=== PATIENT | male | born 1945 | race Caucasian/White ===

== ENCOUNTER → 2016-05-04 | Outpatient (CLI) | payer MEDICARE ==
[~2016-05-04] MED LIST: ALLO300T2 PO; ALLOPURINOL; Aspirin PO; Atorvastatin Calcium PO; CLPD75T PO; HCTZ; HYDR50TA3 PO; LISI5TAB14 PO; METO25TA2 PO; [UNRECOGNIZED DRUG - OTHER]
--- OUTSIDE RECORDS SUMMARY | 2016-05-04 12:19 | XMS REPORT | Continuity of Care Document ---
Author Author [facility] Organization [facility] Address Unknown Phone Unavailable Care Team Providers Care Camp Boss Name Role Phone DANDY SELLERS MD PCP Insurance Providers Payer Name Policy Number Subscriber Name Relationship Wps Medicare [id number] Freddy Jewell 18 Self / Same As Patient Blue [employer] Supp [id number] Freddy Jewell 18 Self / Same As Patient Advance Directives Directive Response Recorded Date/Time Advance Directives No 05/31/14 8:15pm Health Care Power of Explosive Operator No 05/31/14 8:15pm Organ Donor Yes 05/31/14 8:15pm Resuscitation Status Full Code 05/31/14 8:15pm Chief Complaint and Reason for Visit Chief Complaint ACUTE ST ELEVATION PA Reason for Visit CAD (coronary artery disease) Hyperlipidemia Problems Medical Problems Problem Onset Date Status CAD (coronary artery disease) 06/02/2014 Active Hyperlipidemia 06/02/2014 Active Medications Medication Dose Route Sig Days/Qty Instructions Order Date Discontinued Date Status [Hctz] DAILY 02/17/11 06/02/14 Discontinued [Allopurinol] DAILY 02/17/11 06/02/14 Discontinued [Uricet] DAILY 02/17/11 06/02/14 Discontinued [Aspirin] 81 Mg PO DAILY 30 Qty 06/02/14 Active Clopidogrel Bisulfate 75 Mg PO DAILY 30 Qty 06/02/14 Active Lisinopril (Lisinopril 5mg) 2.5 Mg PO DAILY 30 Qty 06/02/14 Active Metoprolol Tartrate 12.5 Mg PO TWICE A DAY 30 Qty 06/02/14 Active [Atorvastatin Calcium] 20 Mg PO BEDTIME 30 Qty 06/02/14 Active Allopurinol 300 Mg PO DAILY 06/02/14 Active Hydrochlorothiazide 50 Mg PO DAILY 06/02/14 06/02/14 Discontinued Social History Social History Problem Response Recorded Date/Time Alcohol Use Denies Use 05/31/2014 8:15pm Recreational Drug Use No 05/31/2014 8:15pm Recent Foreign Travel No 05/31/2014 8:15pm Recent Infectious Disease Exposure No 05/31/2014 8:15pm Hospitalization with Isolation Denies 06/02/2014 12:14pm Sexually Transmitted Disease No 05/31/2014 8:15pm HIV/AIDS No 05/31/2014 8:15pm Smoking Status Never a Smoker 05/31/2014 8:15pm Do you dip or chew tobacco? No 05/31/2014 8:15pm Query Response Start Date Stop Date Smoking Status Never a Smoker Hospital Discharge Instructions Patient Instructions Physician Instructions New, Converted or Re-Newed RX: RX on Chart Patient Instructions: Please schedule a follow up appointment to see Dr. Kim in 1-2 weeks Plan of Care Discharge Date 06/02/14 11:37am Disposition 30 STILL A PATIENT Instructions/Education Provided CARDIAC CATH DISCHARGE INSTRUC Forms Provided PDI Cardiac Cath Prescriptions See Medications Section Follow-up Orders Lipid Panel CMP Referrals DELMAR KIM MD FACP FACC CCDS (Unspecified) 06/12/14 Address: [address] [place] [address] [address] [place], [place] [id number] Reason(s) for Referral: Thursday, June 12, 2014 at 2:40 PM Call the office if you have questions/concerns. Care Plan and Goals Please remover dressing to right groin and apply a band aide DO NOT DISCHARGE UNTIL SEEN BY DR. KIM Functional Status Query Response Date Recorded Comprehension Ability Understands Concepts June 02, 2014 8:10am Allergies, Adverse Reactions, Alerts Allergen Type Severity Reaction Status Last Updated No Known Drug Allergies Active 02/17/11 Immunizations Name Given Type Date of Pneumonia Vaccine 06/02/14 Historical Date of Influenza Vaccine 01/03/14 Historical Hepatitis A No Historical Hepatitis B No Historical Tetanus Booster (TDap) Unknown Historical pneumococcal polysaccharide PPV23 06/02/14 Administered pneumococcal polysaccharide PPV23 06/02/14 Administered Vital Signs Acute Vital Signs Vital Response Date/Time Temperature (Fahrenheit) 96.9 degrees F (97.6 - 99.5) Temperature (Calculated Celsius) 36.05381 degrees C (36.4 - 37.5) Temperature Source Temporal Pulse Rate (adult) 66 bpm (60 - 90) Respiratory Rate 20 bpm (12 - 24) O2 Sat by Pulse Oximetry 96 % (88 - 100) Blood Pressure 107/69 mm Hg Pain Pain Intensity 0 Height (Feet) 5 feet Height (Inches) 7.00 inches Height (Calculated Centimeters) 170.631692 cm Weight (Pounds) 175 pounds Weight (Calculated Grams) 53708.666 gm Weight (Calculated Kilograms) 79.835578 kilograms Calculated BMI 25.06 Results Laboratory Results Test Name Result Units Flags Reference Collection Date/Time Result Date/ Time Comments White Blood Count 10.0 10^3/uL 4.3-11.0 06/02/2014 5:06/02/2014 5: 44am Red Blood Count 4.40 10^6/uL 4.35-5.85 06/02/2014 5:06/02/2014 5: 44am Hemoglobin 13.0 G/DL L 13.3-17.7 06/02/2014 5:06/02/2014 5:44am Hematocrit 38 % L 40-54 06/02/2014 5:06/02/2014 5:44am Mean Corpuscular Volume 86 FL 80-99 06/02/2014 5:06/02/2014 5: 44am Mean Corpuscular Hemoglobin 30 PG 25-34 06/02/2014 5:06/02/2014 5: 44am Mean Corpuscular Hemoglobin Concent 34 G/DL 32-36 06/02/2014 5: 5:44am Red Cell Distribution Width 13.3 % 10.0-14.5 06/02/2014 5:2014 5:44am Platelet Count 200 10^3/uL 130-400 06/02/2014 5:06/02/2014 5:44am Mean Platelet Volume 9.7 FL 7.4-10.4 06/02/2014 5:06/02/2014 5: 44am Sodium Level 140 MMOL/L 135-145 06/02/2014 5:06/02/2014 5:56am Potassium Level 3.8 MMOL/L 3.6-5.0 06/02/2014 5:06/02/2014 5:56am Chloride Level 107 MMOL/L 98-107 06/02/2014 5:06/02/2014 5:56am Carbon Dioxide Level 23 MMOL/L 21-32 06/02/2014 5:06/02/2014 5: 56am Blood Urea Nitrogen 21 MG/DL H 7-18 06/02/2014 5:06/02/2014 5:56am Creatinine 0.90 MG/DL 0.60-1.30 06/02/2014 5:06/02/2014 5:56am BUN/Creatinine Ratio 23 06/02/2014 5:06/02/2014 5:56am Estimat Glomerular Filtration Rate > 60 06/02/2014 5:2014 5:56am GFR INTERPRETIVE DATA UNITS FOR ESTIMATED GFR (eGFR): mL/min/1.73 M2 REFERENCE RANGE FOR ESTIMATED GFR (eGFR) eGFR NORMAL eGFR >60 MODERATELY DECREASED eGFR 30-59 SEVERLY DECREASED eGFR 15-29 KIDNEY FAILURE <15 (OR DIALYSIS) Glucose Level 98 MG/DL 70-105 06/02/2014 5:06/02/2014 5:56am Glucometer 142 MG/DL H 70-110 06/01/2014 9:45pm 06/01/2014 10:00pm Calcium Level 8.8 MG/DL 8.5-10.1 06/02/2014 5:06/02/2014 5:56am Magnesium Level 1.9 MG/DL 1.8-2.4 06/02/2014 5:06/02/2014 5:56am Total Bilirubin 0.4 MG/DL 0.1-1.0 06/01/2014 4:3506/01/2014 5:09am Alkaline Phosphatase 50 U/L 40-136 06/01/2014 4:3506/01/2014 5:09am Aspartate Amino Transf (AST/SGOT) 114 U/L H 5-34 06/01/2014 4:352014 5:09am Alanine Aminotransferase (ALT/SGPT) 26 U/L 0-55 06/01/2014 4:35am 06/01 5:09am Total Protein 5.6 G/DL L 6.4-8.2 06/01/2014 4:35am 06/01/2014 5:09am Albumin 3.4 G/DL 3.2-4.5 06/01/2014 4:35am 06/01/2014 5:09am Triglycerides Level 162 MG/DL H <150 06/01/2014 4:35am 06/01/2014 5:09am Cholesterol Level 188 MG/DL < 200 06/01/2014 4:35am 06/01/2014 5:09am HDL Cholesterol 35 MG/DL L 40-60 06/01/2014 4:35am 06/01/2014 5:09am LDL Cholesterol Direct 134 MG/DL H 1-129 06/01/2014 4:35am 06/01/2014 5: 09am VLDL Cholesterol 32 MG/DL 5-40 06/01/2014 4:35am 06/01/2014 5:09am Thyroid Stimulating Hormone (TSH) 1.40 UIU/ML 0.35-4.94 06/01/2014 4: 35am 06/01/2014 5:44am Procedures Procedure Status Date Provider(s) Tracing only of electrocardiogram completed 05/31/14 DELMAR KIM MD FACP FAC CCDS Encounters Encounter Location Date/Time Discharged Inpatient Via [facility] 05/31/14 8:00pm Recent Diagnosis CAD (coronary artery disease) Hyperlipidemia
--- NOTE | 2016-05-04 12:35 | Diagnostic Imaging Report ---
EXAMINATION: PA and lateral chest. COMPARISON: 06/24/2008. FINDINGS: There is minimal left basilar atelectasis. The right lung is clear. The heart size is normal. No effusion or pneumothorax. Cardiac stent projecting over the left side of the heart seen. Mediastinum and oscar appear unremarkable. IMPRESSION: Minimal left basilar atelectasis. Dictated by: Dictated on workstation # [id number]
== END ==
LOC: RAD 12:14
PROVIDERS: ATTEND Nurse Practitioner Family
DX: J18.9 Pneumonia, unspecified organism (principal)
CPT/HCPCS: 71020

== ENCOUNTER → 2016-05-29 | Outpatient (CLI) | payer MEDICARE ==
[2016-05-29 09:01] LABS: ALANINE AMINOTRANSFERASE 26 U/L (0-55); ALBUMIN 3.9 G/DL (3.2-4.5); ANION GAP 7 MMOL/L (5-14); ASPARTATE AMINO TRANSFERASE 24 U/L (5-34); BILIRUBIN,TOTAL 0.9 MG/DL (0.1-1.0); BLOOD UREA NITROGEN 19 MG/DL (7-18); BUN/CREATININE RATIO 19; CALCIUM 8.8 MG/DL (8.5-10.1); CARBON DIOXIDE 27 MMOL/L (21-32); CHLORIDE 107 MMOL/L (98-107); CHOLESTEROL 154 MG/DL (< 200); CREATININE SERUM 1.02 MG/DL (0.60-1.30); DIRECT LDL 93 MG/DL (1-129); GFR ESTIMATED > 60; GLUCOSE 92 MG/DL (70-105); POTASSIUM 4.3 MMOL/L (3.6-5.0); SODIUM 141 MMOL/L (135-145); TOTAL PROTEIN 6.4 G/DL (6.4-8.2); TRIGLYCERIDES 67 MG/DL (<150); VLDL CHOLESTEROL 13 MG/DL (5-40)
== END ==
LOC: LAB 08:24
PROVIDERS: ATTEND Internal Medicine Cardiovascular Disease
DX: I25.10 Atherosclerotic heart disease of native coronary artery without angina pectoris (principal); E78.5 Hyperlipidemia, unspecified; I10 Essential (primary) hypertension
CPT/HCPCS: 36415; 80053; 80061

== ENCOUNTER → 2016-06-13 | Outpatient (CLI) | payer MEDICARE | LOC: RAD 12:09 | PROVIDERS: ATTEND Internal Medicine Cardiovascular Disease | DX: I25.10 Atherosclerotic heart disease of native coronary artery without angina pectoris (principal); I65.23 Occlusion and stenosis of bilateral carotid arteries; E78.4 Other hyperlipidemia; I10 Essential (primary) hypertension; I73.9 Peripheral vascular disease, unspecified | CPT/HCPCS: 93923 ==

== ENCOUNTER → 2016-06-27 | Outpatient (CLI) | payer MEDICARE ==
--- NOTE | 2016-06-28 10:58 | ECHOCARDIOGRAPHY REPORT ---
DATE OF SERVICE: 06/27/2016 ORDERING PHYSICIAN: Dr. Kim. PRIMARY CARE PHYSICIAN: Dr. Prado. CLINICAL DIAGNOSES: Coronary artery disease, hyperlipidemia, hypertension. MEASUREMENTS: 1. Left atrium, 3. 2. Aortic root, 3.5. 3. LV diameter, diastolic, 4.1. 4. IVS thickness, diastolic, 0.8. 5. LVPW thickness, diastolic, 0.8. DESCRIPTION: Two-dimensional echocardiography shows well-preserved global left ventricular systolic function with normal regional wall motion. The aortic, mitral, and tricuspid valve leaflets show good leaflet excursion. There is no significant pericardial effusion. Doppler imaging shows mild aortic, mitral and tricuspid regurgitation. Pulmonary artery systolic pressure is estimated at approximately 30 mmHg. There is no Doppler evidence of significant valvular stenosis. There is no evidence of significant intracardiac shunt on this transthoracic echocardiographic study. The inferior vena cava does not appear to be dilated. CONCLUSIONS: 1. Normal global left ventricular systolic function with ejection fraction of approximately 60%. 2. Mild aortic, mitral and tricuspid regurgitation. 3. No evidence of significant valvular stenosis. 4. Pulmonary artery systolic pressure estimated at approximately 30 mmHg. Job ID: [id number] DocumentID: [id number] Dictated Date: 06/27/2016 17:53:10 County Agricultural Agent Date: 06/28/2016 09:26:39 Dictated By: DELMAR KIM MD, MA, FACP, FACC,
== END ==
LOC: CARD 13:32
PROVIDERS: ATTEND Internal Medicine Cardiovascular Disease
DX: I25.10 Atherosclerotic heart disease of native coronary artery without angina pectoris (principal); E78.5 Hyperlipidemia, unspecified; I10 Essential (primary) hypertension
CPT/HCPCS: 93306; 93351

== ENCOUNTER → 2017-04-16 | Outpatient (CLI) | payer MEDICARE ==
--- NOTE | 2017-04-16 15:42 | Diagnostic Imaging Report ---
INDICATION: Cough and congestion. TIME OF EXAM: 3:26 p.m. COMPARISON: Correlation is made with prior study from 05/04/2016. FINDINGS: The heart size is normal. The pulmonary vascularity is unremarkable. The lungs are clear. No infiltrate, effusion or pneumothorax is detected. Impression: No acute cardiopulmonary process is detected. Dictated by: Dictated on workstation # [id number]
== END ==
LOC: RAD 14:58
PROVIDERS: ATTEND Family Medicine
DX: R05 Cough (principal)
CPT/HCPCS: 71046

== ENCOUNTER → 2017-05-31 | Outpatient (CLI) | payer MEDICARE ==
[2017-05-31 09:32] LABS: BASOPHILS % (AUTO) 1 % (0-10); EOSINOPHILS # (AUTO) 0.2 10^3/uL (0.0-0.3); EOSINOPHILS % (AUTO) 3 % (0-10); HEMATOCRIT 38 % (40-54); HEMOGLOBIN 13.2 G/DL (13.3-17.7); LYMPHOCYTES # (AUTO) 1.4 X 10^3 (1.0-4.0); LYMPHOCYTES % (AUTO) 18 % (12-44); MEAN CORPUSCULAR HEMOGLOBIN 31 PG (25-34); MEAN CORPUSCULAR HGB CONC 35 G/DL (32-36); MEAN CORPUSCULAR VOLUME 89 FL (80-99); MEAN PLATELET VOLUME 9.8 FL (7.4-10.4); MONOCYTES # (AUTO) 0.6 X 10^3 (0.0-1.0); MONOCYTES % (AUTO) 8 % (0-12); NEUTROPHILS # (AUTO) 5.3 X 10^3 (1.8-7.8); NEUTROPHILS % (AUTO) 70 % (42-75); PLATELET COUNT 230 10^3/uL (130-400); RED BLOOD COUNT 4.33 10^6/uL (4.35-5.85); WHITE BLOOD COUNT 7.6 10^3/uL (4.3-11.0)
[2017-05-31 09:54] LABS: ALANINE AMINOTRANSFERASE 16 U/L (0-55); ALKALINE PHOSPHATASE 71 U/L (40-136); BILIRUBIN,TOTAL 0.8 MG/DL (0.1-1.0); BUN/CREATININE RATIO 16; CALCIUM 8.9 MG/DL (8.5-10.1); CARBON DIOXIDE 30 MMOL/L (21-32); CHLORIDE 107 MMOL/L (98-107); CREATININE SERUM 0.94 MG/DL (0.60-1.30); GFR ESTIMATED > 60; GLUCOSE 93 MG/DL (70-105); POTASSIUM 4.2 MMOL/L (3.6-5.0); SODIUM 140 MMOL/L (135-145); TOTAL PROTEIN 6.5 GM/DL (6.4-8.2)
== END ==
LOC: LAB 09:12
PROVIDERS: ATTEND Internal Medicine Cardiovascular Disease
DX: I25.10 Atherosclerotic heart disease of native coronary artery without angina pectoris (principal); R25.2 Cramp and spasm; I65.29 Occlusion and stenosis of unspecified carotid artery; I73.9 Peripheral vascular disease, unspecified; E78.5 Hyperlipidemia, unspecified; I10 Essential (primary) hypertension
CPT/HCPCS: 36415; 80053; 84443; 85025

== ENCOUNTER → 2017-11-15 | Outpatient (CLI) | payer MEDICARE ==
[2017-11-15 09:18] LABS: ALANINE AMINOTRANSFERASE 18 U/L (0-55); ALBUMIN 4.3 GM/DL (3.2-4.5); ALKALINE PHOSPHATASE 66 U/L (40-136); BILIRUBIN,TOTAL 0.9 MG/DL (0.1-1.0); BUN/CREATININE RATIO 22; CALCIUM 9.2 MG/DL (8.5-10.1); CARBON DIOXIDE 24 MMOL/L (21-32); CHLORIDE 105 MMOL/L (98-107); CHOLESTEROL 139 MG/DL (< 200); CREATININE SERUM 1.09 MG/DL (0.60-1.30); GFR ESTIMATED > 60; GLUCOSE 91 MG/DL (70-105); HDL CHOLESTEROL 47 MG/DL (40-60); SODIUM 138 MMOL/L (135-145); TOTAL PROTEIN 6.3 GM/DL (6.4-8.2); TRIGLYCERIDES 52 MG/DL (<150); VLDL CHOLESTEROL 10 MG/DL (5-40)
== END ==
LOC: LAB 08:39
PROVIDERS: ATTEND Nurse Practitioner Family
DX: I25.10 Atherosclerotic heart disease of native coronary artery without angina pectoris (principal); I77.89 Other specified disorders of arteries and arterioles; E78.5 Hyperlipidemia, unspecified; I10 Essential (primary) hypertension
CPT/HCPCS: 36415; 80053; 80061

== ENCOUNTER → 2018-07-30 | Outpatient (CLI) | payer MEDICARE ==
[~2018-07-30] MED LIST changes: +CATHETER FLUSH 10 ML SYR IV PRN
[2018-07-30 14:00] VITALS: BP 113/90
[2018-07-30 14:13] VITALS: BP 146/75
--- NOTE | 2018-07-30 19:01 | STRESS TEST ---
DATE OF SERVICE: 07/30/2018 RESTING AND POST EXERCISE TECHNETIUM-99M TETROFOSMIN SPECT CT IMAGING Baseline images were carried out after injection of 10.94 mCi of technetium-99m Tetrofosmin. This was followed by exercise on a treadmill. Roberto protocol was employed. Heart rate and blood pressure responses to exercise were normal. There was approximately [address] segment depression at peak exercise. The patient attained 106% of maximum predicted heart rate and 11.1 METS of workload. He exercised for a total of 9 minutes and 30 seconds in the Roberto protocol. No significant arrhythmia was seen. After he had indicated that he would not be able to go for more than another minute on the treadmill, 29.1 mCi of technetium-99m Tetrofosmin were injected and the exercise was continued for another minute. The patient tolerated the procedure well. Review of images at rest and following stress does not indicate any significant perfusion defects consistent with significant myocardial ischemia or infarction. Some degree of diaphragmatic attenuation is seen both at rest and following exercise. Gated images show normal global left ventricular systolic function and normal regional wall motion, including the diaphragmatic wall of the left ventricle. Left ventricular ejection fraction is calculated to be 61%. Left ventricular end diastolic volume is 64 mL. TID is absent (0.95). CONCLUSIONS: 1. No evidence of any significant myocardial ischemia or infarction on this study. 2. Normal regional wall motion. 3. Normal global left ventricular systolic function with a calculated ejection fraction of 61%. Job ID: [id number] DocumentID: [id number] Dictated Date: 07/30/2018 17:20:54 Cow Rider Date: 07/30/2018 19:00:38 Dictated By: DELMAR HEARD MD, MA, FACP, FACC,
== END ==
LOC: CARD 11:57
PROVIDERS: ATTEND Internal Medicine Cardiovascular Disease
DX: R07.9 Chest pain, unspecified (principal); I25.10 Atherosclerotic heart disease of native coronary artery without angina pectoris; E78.5 Hyperlipidemia, unspecified; I77.89 Other specified disorders of arteries and arterioles; I10 Essential (primary) hypertension
CPT/HCPCS: 78452; 93017

== ENCOUNTER → 2019-01-29 | Outpatient (CLI) | payer MEDICARE ==
[~2019-01-29] MED LIST changes: -CATHETER FLUSH 10 ML SYR IV PRN
--- NOTE | 2019-01-29 09:43 | Diagnostic Imaging Report ---
EXAMINATION: Supine abdomen at 0905 hours. INDICATION: Nephrolithiasis. FINDINGS: The prior abdomen exam of 12/28/2008 suggested a 2-3 mm calculus within the inferior pole of the left kidney. On this exam there is now a 8.5 mm calcification overlying the inferior pole of the left kidney. I do suspect that this is intrarenal. In addition there is a 7.9 mm calcification low in the pelvis on the left. This finding was not present on the prior exam. This could represent a ureteral stone. The possibility that this is secondary to a phlebolith should also be considered. If there is clinical concern regarding obstruction of the left collecting system, then CT would be recommended for further evaluation. There is no evidence for nephrolithiasis on the right although the right kidney is obscured by bowel gas and fecal material. The bowel gas pattern is nonspecific. There is no evidence for bowel obstruction. There is no mass, organomegaly or pathological calcification evident. The osseous structures are intact. The degenerative disc and bony disease at the L4-L5 and L5-S1 level has progressed somewhat since the prior study. IMPRESSION: 1. There is an 8.5 mm calcification overlying the inferior pole of the left kidney. Most likely this is intrarenal. 2. The new 7.9 mm calcification along the pelvis on the left is of uncertain etiology. Considerations and recommendations as above. 3. There is no acute abnormality identified. Dictated by: Dictated on workstation # [id number]
== END ==
LOC: RAD 08:50
PROVIDERS: ATTEND Urology
DX: N20.0 Calculus of kidney (principal); N28.89 Other specified disorders of kidney and ureter
CPT/HCPCS: 74018

== ENCOUNTER → 2019-02-06 | Outpatient (CLI) | payer MEDICARE ==
--- NOTE | 2019-02-06 14:42 | Diagnostic Imaging Report ---
PROCEDURE: CT abdomen and pelvis without contrast. TECHNIQUE: Multiple contiguous axial images were obtained through the abdomen and pelvis without the use of intravenous contrast. Auto Exposure Controls were utilized during the CT exam to meet ALARA standards for radiation dose reduction. INDICATION: Kidney stones. COMPARISON: No prior studies are available for comparison. FINDINGS: The lung bases are clear. No discrete liver mass is identified. The gallbladder is unremarkable. No biliary ductal dilatation is seen. The pancreas and spleen are unremarkable. No adrenal mass is detected. Right kidney contains a tiny 1-2 mm nonobstructing calculus in the lower pole. Left kidney contains two adjacent calculi in the lower pole each measuring 4-5 mm in size. Both ureters are somewhat prominent but no ureteral calculi are seen. Bladder is moderately distended. There is a diverticulum arising from the left aspect of the bladder measuring 2.9 cm. Prostate is enlarged. No bladder calculi are seen. Aorta is non-aneurysmal. The small and large bowel loops are normal caliber. There is no obstruction. Diverticulosis of the sigmoid is noted. No free fluid or fluid collection is identified. No definite abdominal or pelvic lymphadenopathy is seen. IMPRESSION: 1. Bilateral nonobstructing nephrolithiasis. 2. Prostatomegaly and bladder distention as well as bladder diverticulum. This may be owing to bladder outlet obstruction. 3. Uncomplicated diverticulosis. Dictated by: Dictated on workstation # [id number]
== END ==
LOC: RAD 14:05
PROVIDERS: ATTEND Urology
DX: N20.0 Calculus of kidney (principal); N40.0 Benign prostatic hyperplasia without lower urinary tract symptoms; K57.30 Diverticulosis of large intestine without perforation or abscess without bleeding; N32.3 Diverticulum of bladder; N32.89 Other specified disorders of bladder
CPT/HCPCS: 74176

== ENCOUNTER → 2020-01-15 | Outpatient (CLI) | payer MEDICARE ==
[~2020-01-15] MED LIST changes: +ASPI-999 PO; +ATOR40TA70 PO; +CLOP75TA69 PO; +LOSA25TA41 PO; +METO-333 PO; +TMSL.4C PO
--- NOTE | 2020-01-15 13:52 | Diagnostic Imaging Report ---
PROCEDURE: CT abdomen and pelvis without contrast. TECHNIQUE: Multiple contiguous axial images were obtained through the abdomen and pelvis without the use of intravenous contrast. Auto Exposure Controls were utilized during the CT exam to meet ALARA standards for radiation dose reduction. INDICATION: Left flank and bilateral kidney stones. Patient does have hematuria as well. COMPARISON: Correlation is made with prior CT from 02/06/2019. FINDINGS: The lung bases are clear. No discrete liver mass is detected. Gallbladder is unremarkable. No biliary ductal dilatation is seen. Pancreas and spleen are unremarkable. No adrenal mass is detected. Tiny punctate nonobstructing calculi in right kidney are again noted. There is a tiny nonobstructing calculus in lower pole of left kidney. Left kidney has developed fairly significant hydroureteronephrosis. The dilated left ureter is traced into the pelvis where there are two calcifications present, largest measuring approximately 8 mm x 5 mm. No bladder calculi are seen. Diverticulum in left aspect of the bladder is again noted. There is moderate bladder distention. No right ureteral calculi are detected. Bowel loops are normal caliber. Aorta is non-aneurysmal. There is no ascites. IMPRESSION: 1. Bilateral nonobstructing nephrolithiasis. In addition, there are two calculi in the distal left ureter producing fairly significant hydroureteronephrosis. 2. Bladder trabeculation and bladder diverticulum. Dictated by: Dictated on workstation # [id number]
--- NOTE | 2020-01-15 14:19 | Diagnostic Imaging Report ---
EXAMINATION: Supine abdomen at 1:28 p.m. INDICATION: Left flank pain, nephrolithiasis. FINDINGS: A single supine view was obtained. The CT abdomen/pelvis exam performed prior to the study noted tiny nonobstructive calculi involving both kidneys as well as partial obstruction of the left collecting system due to two contiguous calculi in the distal left ureter. On this exam the contiguous calculi in the distal left ureter are difficult to appreciate. There is a well-circumscribed 6 mm rounded calcification in this area. This finding was also present on the prior abdomen exam of 01/29/2019 and most most likely represents a phlebolith. I suspect that the obstructive calculus is superimposed on the phlebolith. There is a minute 1 mm calcification overlying the inferior pole of the left kidney. This would correspond to the nonobstructive calculus seen on the CT exam. There are no other pathological calcifications evident. There is no acute abnormality of the abdomen. IMPRESSION: 1. The two calculi in the region of the distal left ureter seen on the CT exam may in fact represent one ureteral stone and a phlebolith. A follow-up exam should be considered for further evaluation. 2. There is a minute nonobstructive calculus overlying the inferior pole of the left kidney. Dictated by: Dictated on workstation # [id number]
== END ==
LOC: RAD 13:45
PROVIDERS: ATTEND Urology
DX: N13.2 Hydronephrosis with renal and ureteral calculous obstruction (principal); N32.3 Diverticulum of bladder; N32.89 Other specified disorders of bladder
CPT/HCPCS: 74018; 74176

== ENCOUNTER 2020-01-19 05:45 | Outpatient (RCR) | payer MEDICARE ==
[~2020-01-19] VITALS: Ht 170.2 cm; Wt 72.7 kg
[~2020-01-19 05:45] MED LIST changes: -ASPI-999 PO; -ATOR40TA70 PO; -CLOP75TA69 PO; -LOSA25TA41 PO; -METO-333 PO; -TMSL.4C PO
[2020-01-19] MEDS ORDERED: ASPI-999 PO (14:48)
[2020-01-19] MEDS ORDERED: CLOP75TA69 PO (14:48)
[2020-01-19] MEDS ORDERED: LOSA25TA41 PO (14:48)
[2020-01-19] MEDS ORDERED: ALLO300T2 PO (14:48)
[2020-01-19] MEDS ORDERED: METO-333 PO (14:48)
[2020-01-19] MEDS ORDERED: ATOR40TA70 PO (14:48)
[2020-01-19] MEDS ORDERED: TMSL.4C PO (14:52)
[2020-01-20] MEDS ORDERED: SULF1TAB35 PO (09:22)
[2020-01-20] MEDS ORDERED: TRM50T PO (09:22)
[2020-01-20] MEDS ORDERED: TMSL.4C PO (09:22)
== END 2020-01-19 15:10 | disposition home or self-care (01) ==
LOC: PREOP 05:45
PROVIDERS: ATTEND Urology
DX: Z01.818 Encounter for other preprocedural examination (principal)

== ENCOUNTER 2020-01-20 06:06 | Day surgery (SDC) | payer MEDICARE ==
[~2020-01-20] VITALS: Ht 170.2 cm; Wt 72.7 kg
[2020-01-20] VITALS (8 sets, daily range): BP systolic 97–119; BP diastolic 64–75
[~2020-01-20 06:06] MED LIST changes: +ASPI-999 PO; +ATOR40TA70 PO; +CLOP75TA69 PO; +LOSA25TA41 PO; +METO-333 PO; +TMSL.4C PO
[2020-01-20] MEDS ORDERED: cefTRIAXone FOR IV USE 1,000 MG in WATER (STERILE) FOR INJECTION 10 ML IV ONE (06:30)
[2020-01-20] MEDS ORDERED: CATHETER FLUSH 10 ML SYR IV PRN (06:30)
[2020-01-20] MEDS: LACTATED RINGERS 1,000 ML IV PRN ×2 (06:47→07:48)
[2020-01-20] MEDS ORDERED: fentaNYL INJECTION 100 MCG/2 ML AMP ONE (06:52)
[2020-01-20] MEDS ORDERED: MIDAZOLAM 2 MG/2 ML (VERSED) VIAL ONE (06:53)
[2020-01-20] MEDS ORDERED: proPOfol 200 MG/20 ML (DIPRIVAN) VIAL IV ONE (06:53)
--- NOTE | 2020-01-20 06:56 | Diagnostic Imaging Report ---
INDICATION: Ureteral stone. COMPARISON: CT abdomen pelvis from 01/15/2020. FINDINGS AND IMPRESSION: 1. 2 adjacent stones in the distal left ureter are in stable position. The larger of the 2 measures approximately 8 mm. 2. Nonobstructive bowel gas pattern. Dictated by: Dictated on workstation # [id number]
[2020-01-20] MEDS ORDERED: LIDOCAINE PF 2% 5 ML (XYLOCAINE) VIAL ONE (06:57)
--- NOTE | 2020-01-20 07:02 | Progress Note-Pre Operative ---
Pre-Operative Progress Note H&P Reviewed The H&P was reviewed, patient examined and no changes noted. Date Seen by Provider: Jan 20, 2020 Time Seen by Provider: 07:02 Date H&P Reviewed: Jan 20, 2020 Time H&P Reviewed: 07:02 Pre-Operative Diagnosis: LT DISTAL URETERAL STONE GEN PUGA MD Jan 20, 2020 07:02
[2020-01-20] MEDS ORDERED: ONDANSETRON 4 MG/2 ML (SDV) Z0FRAN ONE (07:05)
[2020-01-20] MEDS ORDERED: ROCURONIUM 10 MG/ML 5 ML SYRINGE IV ONE (07:06)
[2020-01-20] MEDS ORDERED: GLYCOPYRROLATE 0.2 MG/ML (ROBINUL) 2 ML VIAL ONE ×2 (07:28→08:04)
[2020-01-20] MEDS ORDERED: SEVOFLURANE (ULTANE) 15 ML INHAL SOLN ONE ×2 (07:36→08:39)
--- NOTE | 2020-01-20 07:50 | Progress Note-Post Operative ---
Post-Operative Progess Note Surgeon (s)/Finishing Tunnel Operator (s) Surgeon GEN PUGA MD Finishing Tunnel Operator: NONE Pre-Operative Diagnosis LT DISTAL URETERAL STONE Post-Operative Diagnosis SAME Procedure & Operative Findings Date of Procedure 01/20/20 Procedure Performed/Findings CYSTOSCOPY, ATTEMPTED LT URETEROSCOPY, AND LT ESWL Anesthesia Type GENERAL Estimated Blood Loss Estimated blood loss (mL): NONE Specimens/Packing Specimens Removed NONE Packing: NONE GEN PUGA MD Jan 20, 2020 07:50
--- NOTE | 2020-01-20 07:52 | Discharge Inst-Urology ---
Discharge Inst-Urology Reconcile Patient Problems Problems Reviewed?: Yes Final Diagnosis LT DISTAL URETERAL STONE Patient Instructions/Follow Up Plan/Assessment/Instructions Please make appointment to been seen in office Thursday 02/01. KUB prior to it KUB on way home Post ESWL instructions Increase oral fluids for 48 hours and then as needed. Diet and Activity as tolerated. If questions or concerns contact your physician Or seek help at emergency department. GEN PUGA MD Jan 20, 2020 07:52
[2020-01-20] MEDS ORDERED: NEOSTIGMINE 3 MG/3 ML VIAL ONE (08:04)
[2020-01-20] MEDS ORDERED: FUROSEMIDE 40 MG/4 ML INJ (LASIX) ONE (08:04)
[2020-01-20] MEDS ORDERED: KETOROLAC 30 MG/ML VIAL ONE (08:04)
[2020-01-20] MEDS ORDERED: ONDANSETRON 4 MG/2 ML (SDV) Z0FRAN IVP PRN (08:45)
[2020-01-20] MEDS ORDERED: morphine INJ 10 MG/ML 1ML (SYR OR VIAL) IVP ONE (08:45)
[2020-01-20] MEDS ORDERED: TMSL.4C PO (09:22)
[2020-01-20] MEDS ORDERED: TRM50T PO (09:22)
[2020-01-20] MEDS ORDERED: SULF1TAB35 PO (09:22)
--- NOTE | 2020-01-20 10:37 | Diagnostic Imaging Report ---
EXAMINATION: Abdomen 1 view HISTORY: Post ESWL. COMPARISON: Abdominal radiograph 01/20/2020. FINDINGS: There is moderate amount of gas and stool throughout the colon. Nonobstructive bowel gas pattern. A 0.5 cm calculus within the left pelvis is unchanged. The 0.8 cm calculus appears to have migrated distally. No new radiopaque foreign body. The lung bases are clear. The osseous structures are intact. IMPRESSION: 1. Distal migration of the 0.8 cm left ureteral calculus. Stable 0.5 cm distal left ureter calculus. 2. Moderate stool burden. Dictated by: Dictated on workstation # [id number]
--- NOTE | 2020-01-20 11:54 | Anesthesia-General Post-Op ---
General Patient Condition Mental Status/LOC: Same as Preop Cardiovascular: Satisfactory Nausea/Vomiting: Absent Respiratory: Satisfactory Pain: Controlled Complications: Absent Post Op Complications Complications None Follow Up Care/Instructions Patient Instructions None needed. Anesthesia/Patient Condition Patient Condition Patient was seen this morning after the procedure and he was doing well, no complaints, stable vital signs, no apparent adverse anesthesia problems. KAREEM WRIGHT DO Jan 20, 2020 11:54
--- NOTE | 2020-01-20 12:18 | OPERATIVE REPORT ---
DATE OF SERVICE: 01/20/2020 PREOPERATIVE DIAGNOSIS: Left distal ureteral stone. POSTOPERATIVE DIAGNOSIS: Left distal ureteral stone. OPERATION PERFORMED: Cystoscopy with attempted left ureteroscopy and left ESWL. SURGEON: Dmitry Puga MD ANESTHESIA: General. COMPLICATIONS: None. DESCRIPTION OF PROCEDURE: Under satisfactory general anesthesia, the patient in lithotomy position on the cystoscopy room, genitalia were prepped and draped in the usual sterile fashion. Cystoscope was introduced under vision. The anterior urethra was normal. The prostate showed enlargement with a significant median bar. There was 4+ trabeculation of the bladder with cellules and diverticulum changes in the left side. No displacement of the ureteral orifices upward and laterally. The bladder was full, was evacuated and cystoscopy was confirmed. I felt that there is no way I can get the semirigid ureteroscope into the left ureteral orifice, so I discontinued further attempt and bladder was emptied. The patient was moved on the ESWL table supine. The left ureteral stone was localized. Shocks were delivered starting at 6 kV and increasing gradually to 11. There was good fragmentation and layering of the stone. The patient received 40 mg of Lasix and 30 mg of Toradol at the end of the procedure. He tolerated the procedure and anesthesia well and was sent to recovery room in stable condition. Job ID: [id number] DocumentID: [id number] Dictated Date: 01/20/2020 08:17:22 Missile Inspector Date: 01/20/2020 12:17:05 Dictated By: DMITRY PUGA MD [facility]
== END 2020-01-20 10:45 | disposition home or self-care (01) ==
LOC: SDC 06:06
PROVIDERS: ATTEND Urology
DX: N20.1 Calculus of ureter (principal); N32.3 Diverticulum of bladder; I10 Essential (primary) hypertension; I25.119 Atherosclerotic heart disease of native coronary artery with unspecified angina pectoris; Z95.5 Presence of coronary angioplasty implant and graft; Z79.82 Long term (current) use of aspirin; Z79.899 Other long term (current) drug therapy; Z20.828 Contact with and (suspected) exposure to other viral communicable diseases; Z11.2 Encounter for screening for other bacterial diseases
CPT/HCPCS: 50590; 52000; 74018; 87081; U0002; 87635

== ENCOUNTER → 2020-02-02 | Outpatient (CLI) | payer MEDICARE ==
[~2020-02-02] MED LIST changes: +SULF1TAB35 PO; +TRM50T PO
--- NOTE | 2020-02-02 14:31 | Diagnostic Imaging Report ---
HISTORY: Post lithotripsy. COMPARISON: 01/20/2020. TECHNIQUE: Frontal view of the abdomen. FINDINGS: The 5 mm calculus in the left pelvis appears stable since the prior study. There is a calculus in the right pelvis which may represent the previously seen 8 mm calculus now in the bladder or possibly a new right-sided calculus at the distal right ureter. A small amount of stool is seen in the colon. No distended loops of small bowel are seen. There is no large collection of free air. There are degenerative changes in the lower lumbar spine. IMPRESSION: 1. The 5 mm calculus in the left pelvis is unchanged. 2. An 8 mm calculus is seen in the right pelvis and may represent migration of the left ureteral calculus into the bladder or possibly a new right ureteral calculus. Dictated by: Dictated on workstation # [id number]
== END ==
LOC: RAD 12:57
PROVIDERS: ATTEND Urology
DX: N20.2 Calculus of kidney with calculus of ureter (principal); Z20.828 Contact with and (suspected) exposure to other viral communicable diseases; Z98.890 Other specified postprocedural states
CPT/HCPCS: 74018

== ENCOUNTER → 2020-02-23 | Outpatient (CLI) | payer MEDICARE ==
--- NOTE | 2020-02-23 16:34 | Diagnostic Imaging Report ---
HISTORY: Left lower ureteral stone. Post extracorporeal shock wave lithotripsy. COMPARISON: Radiograph from the same day. Radiographs from 02/02/2020. FINDINGS: KUB redemonstrates the right 7 mm calculus and a left 5 mm calculus in the pelvis. These are unchanged compared to the previous exam. There is moderate stool in the ascending colon. No distended loops of bowel are seen. There are degenerative changes in the lower lumbar spine. IMPRESSION: 1. Unchanged calcifications in the pelvis bilaterally. Dictated by: Dictated on workstation # [id number]
== END ==
LOC: RAD 16:07
PROVIDERS: ATTEND Urology
DX: N20.1 Calculus of ureter (principal); Z98.890 Other specified postprocedural states
CPT/HCPCS: 74018

== ENCOUNTER → 2020-02-23 | Outpatient (CLI) | payer MEDICARE ==
--- NOTE | 2020-02-23 15:42 | Diagnostic Imaging Report ---
INDICATION: Nephrolithiasis. COMPARISON: 02/02/2020. FINDINGS: The bilateral pelvic calcifications are unchanged on the right at 7 mm and on the left at 5 mm. Faint stones project over the bilateral kidneys. There is stool in the colon limiting detail. IMPRESSION: Pelvic calculi unchanged. Nephrolithiasis not obviously changed. Dictated by: Dictated on workstation # [id number]
== END ==
LOC: RAD 13:27
PROVIDERS: ATTEND Urology
DX: N20.2 Calculus of kidney with calculus of ureter (principal)
CPT/HCPCS: 74018

== ENCOUNTER 2020-03-30 05:36 | Outpatient (RCR) | payer MEDICARE ==
[~2020-03-30] VITALS: Ht 170.2 cm; Wt 72.7 kg
[~2020-03-30 05:36] MED LIST changes: +ALFU10TA12 PO; +FINA5TAB6 PO
== END 2020-03-30 09:48 | disposition home or self-care (01) ==
LOC: PREOP 05:36
PROVIDERS: ATTEND Urology
DX: Z01.812 Encounter for preprocedural laboratory examination (principal); N40.0 Benign prostatic hyperplasia without lower urinary tract symptoms; R33.9 Retention of urine, unspecified; Z20.822 Contact with and (suspected) exposure to COVID-19
CPT/HCPCS: 87635

== ENCOUNTER 2020-04-01 06:20 | Day surgery (SDC) | payer MEDICARE ==
[~2020-04-01] VITALS: Ht 170.2 cm; Wt 74.2 kg
[2020-04-01] VITALS (12 sets, daily range): BP systolic 96–138; BP diastolic 58–78
[2020-04-01] MEDS ORDERED: cefTRIAXone FOR IV USE 1,000 MG in WATER (STERILE) FOR INJECTION 10 ML IV ONE (06:30)
[2020-04-01] MEDS ORDERED: MIDAZOLAM 2 MG/2 ML (VERSED) VIAL ONE (06:42)
[2020-04-01] MEDS ORDERED: fentaNYL INJECTION 100 MCG/2 ML AMP ONE (06:42)
[2020-04-01] MEDS ORDERED: PROPOFOL INJECTION 50 ML IV ONE (06:42)
[2020-04-01] MEDS: LACTATED RINGERS 1,000 ML IV PRN ×2 (06:50→07:30)
[2020-04-01] MEDS ORDERED: CLOP75TA69 PO (07:00)
[2020-04-01] MEDS ORDERED: ASPI-999 PO (07:00)
--- NOTE | 2020-04-01 07:02 | Progress Note-Pre Operative ---
Pre-Operative Progress Note H&P Reviewed The H&P was reviewed, patient examined and no changes noted. Date Seen by Provider: Apr 01, 2020 Time Seen by Provider: 07:02 Date H&P Reviewed: Apr 01, 2020 Time H&P Reviewed: 07:02 Pre-Operative Diagnosis: BPH AND RETENTION GEN PUGA MD Apr 01, 2020 07:02
--- NOTE | 2020-04-01 07:04 | Progress Note-Post Operative ---
Post-Operative Progess Note Surgeon (s)/House Carpenter (s) Surgeon GEN PUGA MD House Carpenter: NONE Pre-Operative Diagnosis BPH AND RETENTION Post-Operative Diagnosis SAME Procedure & Operative Findings Date of Procedure 04/01/20 Procedure Performed/Findings TURP Anesthesia Type SPINAL Estimated Blood Loss Estimated blood loss (mL): 150CC Specimens/Packing Specimens Removed PROSTATE CHIPS Packing: NONE GEN PUGA MD Apr 01, 2020 07:04
[2020-04-01] MEDS ORDERED: BELLADONNA ALK/OPIUM (B & O) 30 MG SUPP PR PRN (07:15)
[2020-04-01] MEDS ORDERED: LACTATED RINGERS 1,000 ML IV SCH (07:15)
[2020-04-01] MEDS ORDERED: HYDROcodone/APAP 10 MG/325 MG (LORTAB) TAB PO PRN (07:15)
[2020-04-01] MEDS ORDERED: MILK OF MAGNESIA 400 MG/5 ML 30 ML UDC PO PRN (07:15)
[2020-04-01] MEDS ORDERED: GENTAMICIN 40 MG/ML 2 ML INJ SDV ONE (07:37)
[2020-04-01] MEDS ORDERED: MEPERIDINE (DEMEROL) INJ 50 MG/ML IVP ONE (08:30)
[2020-04-01] MEDS ORDERED: fentaNYL INJECTION 100 MCG/2 ML AMP IVP ONE (08:30)
[2020-04-01] MEDS ORDERED: ONDANSETRON 4 MG/2 ML (SDV) Z0FRAN IVP PRN (08:30)
[2020-04-01 08:49] LABS: BASOPHILS % (AUTO) 1 % (0-10); EOSINOPHILS # (AUTO) 0.3 10^3/uL (0.0-0.3); EOSINOPHILS % (AUTO) 3 % (0-10); HEMATOCRIT 33 % (40-54); HEMOGLOBIN 10.6 g/dL (13.3-17.7); LYMPHOCYTES # (AUTO) 1.8 10^3/uL (1.0-4.0); LYMPHOCYTES % (AUTO) 21 % (12-44); MEAN CORPUSCULAR HEMOGLOBIN 30 pg (25-34); MEAN CORPUSCULAR HGB CONC 33 g/dL (32-36); MEAN CORPUSCULAR VOLUME 92 fL (80-99); MEAN PLATELET VOLUME 9.8 fL (9.0-12.2); MONOCYTES # (AUTO) 0.6 10^3/uL (0.0-1.0); MONOCYTES % (AUTO) 7 % (0-12); NEUTROPHILS # (AUTO) 5.8 10^3/uL (1.8-7.8); NEUTROPHILS % (AUTO) 68 % (42-75); PLATELET COUNT 210 10^3/uL (130-400); WHITE BLOOD COUNT 8.6 10^3/uL (4.3-11.0)
[2020-04-01 09:07] LABS: BUN/CREATININE RATIO 19; CALCIUM 7.8 MG/DL (8.5-10.1); CARBON DIOXIDE 23 MMOL/L (21-32); CHLORIDE 103 MMOL/L (98-107); CREATININE SERUM 1.04 MG/DL (0.60-1.30); GFR ESTIMATED > 60; GLUCOSE 89 MG/DL (70-105); POTASSIUM 4.7 MMOL/L (3.6-5.0); SODIUM 133 MMOL/L (135-145)
--- NOTE | 2020-04-01 09:15 | NUR ---
REPORT RECEIVED FROM JEANINE STILES
[2020-04-01] MEDS: LACTATED RINGERS 1,000 ML IV SCH (10:12)
[2020-04-01] MEDS: DOCUSATE SODIUM 100 MG (COLACE) CAP PO SCH ×2 (11:30→19:54)
--- NOTE | 2020-04-01 12:17 | OPERATIVE REPORT ---
DATE OF SERVICE: 04/01/2020 PREOPERATIVE DIAGNOSIS: Benign prostatic hypertrophy with retention. POSTOPERATIVE DIAGNOSIS: Benign prostatic hyperplasia with retention. OPERATION PERFORMED: Transurethral resection of the prostate. SURGEON: Gen Puga MD ANESTHESIA: Spinal. COMPLICATIONS: None. DESCRIPTION OF PROCEDURE: Under satisfactory spinal anesthesia, the patient in lithotomy position, genitalia were prepped and draped in the usual sterile fashion. The patient had received 1 gram of Rocephin IV. The urethra was dilated with Day sound to #30-Montenegrin to accommodate a 27-Montenegrin FilmLoop resectoscope. It was noted that the bladder was full and the urine was cloudy, so given 80 mg of gentamicin IV as well. Resection was started first in the median bar and lobe that was leveled down completely and then, the roof was resected from 11 to o'clock position, then the lateral lobes from 11 to 6 and 1 to 6 and then the floor and apical tissue as well. Capsule was visualized in many points, resection was complete, hemostasis was adequate. Prostatic chips were evacuated. Cystoscopy confirmed intact ureteric orifices, veru and sphincter with good reflex. The resectoscope was removed. A 22-Montenegrin 3-way 30 mL balloon catheter was inserted in the bladder, the balloon inflated to 40 mL, put on some traction and connected to CBI, the return of which was clear. Estimated blood loss was 150 mL, none of which was replaced. The patient tolerated the procedure and anesthesia well and was sent to recovery room in stable condition. Job ID: [id number] DocumentID: [id number] Dictated Date: 04/01/2020 08:21:39 Business Records Manager Date: 04/01/2020 12:17:24 Dictated By: GEN PUGA MD
[2020-04-01] MEDS ORDERED: LIDOCAINE UROJET 2% GEL 10 ML PKG TOP PRN (16:15)
[2020-04-02 00:41] VITALS: BP 103/56
[2020-04-02 04:55] VITALS: BP 105/60
[2020-04-02 05:00] LABS: BASOPHILS % (AUTO) 0 % (0-10); EOSINOPHILS % (AUTO) 0 % (0-10); HEMATOCRIT 32 % (40-54); HEMOGLOBIN 10.5 g/dL (13.3-17.7); LYMPHOCYTES % (AUTO) 8 % (12-44); MEAN CORPUSCULAR HEMOGLOBIN 30 pg (25-34); MEAN CORPUSCULAR HGB CONC 33 g/dL (32-36); MEAN CORPUSCULAR VOLUME 90 fL (80-99); MEAN PLATELET VOLUME 9.6 fL (9.0-12.2); MONOCYTES # (AUTO) 0.9 10^3/uL (0.0-1.0); MONOCYTES % (AUTO) 7 % (0-12); NEUTROPHILS # (AUTO) 11.1 10^3/uL (1.8-7.8); NEUTROPHILS % (AUTO) 85 % (42-75); PLATELET COUNT 208 10^3/uL (130-400); WHITE BLOOD COUNT 13.1 10^3/uL (4.3-11.0)
[2020-04-02] MEDS: LACTATED RINGERS 1,000 ML IV SCH (06:57)
[2020-04-02] MEDS ORDERED: LEVOFLOXACIN 500 MG/100 ML IV 100 ML IV NR (07:15)
[2020-04-02] MEDS ORDERED: ONDANSETRON 4 MG/2 ML (SDV) Z0FRAN IVP PRN (08:00)
--- NOTE | 2020-04-02 08:04 | Anesthesia-Regional Post-Op ---
Regional Patient Condition Mental Status: Alert, Oriented x3 Circulation: Same as Pre-Op Headache: Present Sensation: Full Recovery Motor Block: Absent Post Op Complications Complications None -- slight headache, does not appear to be a definite PDPH. We will be available if needed. Follow Up Care/Instructions Patient Instructions None needed. Anesthesia/Patient Condition Patient is doing well, C/O nausea with a slight headache, and stable vital signs. He says the nausea is more noticeable compared to the headache. I ordered some zofran prn N/V. We discussed the signs/symptoms and nature of a PDPH, including increased fluids and caffeine for conservative treatment and an epidural blood patch if symptoms worsen. He will call if the headache worsens or has other questions. KAREEM WRIGHT DO Apr 02, 2020 08:04
[2020-04-02 08:30] VITALS: BP 118/67
--- NOTE | 2020-04-02 09:32 | Progress Note - Urology ---
Progress Note-Urology Progress Notes/Assess & Plan Progress/Assessment & Plan DOING AND FEELING WELL. URINE CLEAR. TRY OFF CBI TO DECIDE ON DISCHARGE Final Diagnosis BPH AND RETENTION GEN PUGA MD Apr 02, 2020 09:32
[2020-04-02] MEDS: DOCUSATE SODIUM 100 MG (COLACE) CAP PO SCH (10:09)
[2020-04-02 12:08] VITALS: BP 108/62
--- NOTE | 2020-04-02 12:59 | NUR ---
Received dietary consult for MST score. Given current PO intake and wt hx, pt is not at risk for malnutrition at this time per ASPEN guidelines. Loren Scott, MS RD LD
[2020-04-02] MEDS ORDERED: TRM50T PO (15:19)
[2020-04-02] MEDS ORDERED: CIPR-225 PO (15:19)
[2020-04-02 17:05] VITALS: BP 108/62
== END 2020-04-02 17:45 | disposition home or self-care (01) ==
LOC: SDC 06:20 → 4TH 09:20 → SDC 04-02 17:45
PROVIDERS: ATTEND Urology
DX: N40.1 Benign prostatic hyperplasia with lower urinary tract symptoms (principal); R33.8 Other retention of urine; I10 Essential (primary) hypertension; Z79.899 Other long term (current) drug therapy; Z88.5 Allergy status to narcotic agent; Z95.5 Presence of coronary angioplasty implant and graft
CPT/HCPCS: 36415; 80048; 85025; 86850; 86900; 86901; 87081; 94664

== ENCOUNTER → 2020-10-01 | Outpatient (CLI) | payer MEDICARE ==
[~2020-10-01] MED LIST changes: +CIPR-225 PO; -SULF1TAB35 PO; +SULF1TAB38 PO
== END ==
LOC: CARD 14:00
PROVIDERS: ATTEND Nurse Practitioner Family
DX: I08.0 Rheumatic disorders of both mitral and aortic valves (principal)
CPT/HCPCS: 93306

== ENCOUNTER → 2020-10-12 | Outpatient (CLI) | payer MEDICARE ==
[~2020-10-12] MED LIST changes: +CATHETER FLUSH 10 ML SYR IV PRN
[2020-10-12 09:10] VITALS: BP 127/78
--- NOTE | 2020-10-12 18:58 | STRESS TEST ---
DATE OF SERVICE: 10/12/2020 RESTING AND POST EXERCISE TECHNETIUM-99M TETROFOSMIN SPECT CT IMAGING ORDERING PHYSICIAN: Kirsten Palma APRN PRIMARY PHYSICIAN: Dr. Prado. CLINICAL DIAGNOSIS: Coronary artery disease. Baseline images were carried out after injection of 10.8 mCi of technetium-99m Tetrofosmin. This was followed by exercise on a treadmill. Roberto protocol was employed. Heart rate and blood pressure responses to exercise was appropriate. After the patient indicated that he would not be able to go for more than another minute, 29.2 mCi of technetium-99m Tetrofosmin were injected and the exercise was continued for another minute. The patient attained 10.7 METS of workload. He exercised for a total of 9 minutes and 15 seconds. During exercise, there is considerable baseline artifact that does not allow interpretation of the ST segments. In the immediate postoperative phase, there appears to be [address] segment depression. The patient did not report any chest discomfort. Test was stopped on account of leg cramps. Review of images at rest and following stress does not indicate any distinct evidence of significant myocardial ischemia or infarction. Count uptake is somewhat diminished in the anterior wall, both at rest and following regadenoson infusion. This appears to be due to diaphragmatic attenuation. Gated images show normal global left ventricular systolic function with normal regional wall motion, including the inferior/diaphragmatic wall of the left ventricle. Left ventricular ejection fraction is calculated to be 67%. Left ventricular end diastolic volume is 62 mL. TID is absent (0.87). CONCLUSIONS: 1. This study does not indicate any evidence of significant myocardial ischemia or infarction. 2. Normal regional wall motion. 3. Normal global left ventricular systolic function with a calculated ejection fraction of 67%. Job ID: [id number] DocumentID: [id number] Dictated Date: 10/12/2020 17:24:43 Cnc Machine Setter Date: 10/12/2020 18:57:39 Dictated By: DELMAR HEARD MD, MA, FACP, FACC,
== END ==
LOC: CARD 07:30
PROVIDERS: ATTEND Nurse Practitioner Family
DX: I25.10 Atherosclerotic heart disease of native coronary artery without angina pectoris (principal)
CPT/HCPCS: 78452; 93017; A9502

== ENCOUNTER → 2021-06-06 | Outpatient (CLI) | payer MEDICARE ==
[~2021-06-06] MED LIST changes: -CATHETER FLUSH 10 ML SYR IV PRN
--- NOTE | 2021-06-06 12:02 | Diagnostic Imaging Report ---
INDICATION: Chest pain. EXAMINATION: PA and lateral chest. FINDINGS: Heart size and pulmonary vascularity are normal. Lungs are clear. There are no effusions or pneumothoraces. IMPRESSION: Negative chest. Dictated by: Dictated on workstation # [id number]
[2021-06-06 12:06] LABS: HEMATOCRIT 43 % (40-54); HEMOGLOBIN 14.4 g/dL (13.3-17.7); MEAN CORPUSCULAR HEMOGLOBIN 30 pg (25-34); MEAN CORPUSCULAR HGB CONC 34 g/dL (32-36); MEAN CORPUSCULAR VOLUME 89 fL (80-99); MEAN PLATELET VOLUME 9.3 fL (9.0-12.2); PLATELET COUNT 235 10^3/uL (130-400); WHITE BLOOD COUNT 8.6 10^3/uL (4.3-11.0)
[2021-06-06 12:30] LABS: ALBUMIN 4.1 GM/DL (3.2-4.5); CHLORIDE 106 MMOL/L (98-107); POTASSIUM 4.1 MMOL/L (3.6-5.0); SODIUM 141 MMOL/L (135-145)
[2021-06-06 12:31] LABS: CALCIUM 9.2 MG/DL (8.5-10.1)
[2021-06-06 12:32] LABS: GLUCOSE 94 MG/DL (70-105); TOTAL PROTEIN 6.8 GM/DL (6.4-8.2)
[2021-06-06 12:33] LABS: CARBON DIOXIDE 25 MMOL/L (21-32)
[2021-06-06 12:34] LABS: BILIRUBIN,TOTAL 0.5 MG/DL (0.1-1.0)
[2021-06-06 12:35] LABS: ALKALINE PHOSPHATASE 63 U/L (40-136)
[2021-06-06 12:36] LABS: CREATININE SERUM 1.21 MG/DL (0.60-1.30); GFR ESTIMATED 62
[2021-06-06 12:37] LABS: BUN/CREATININE RATIO 12
[2021-06-06 12:39] LABS: ALANINE AMINOTRANSFERASE 22 U/L (0-55); CREATINE KINASE 60 U/L (30-200)
== END ==
LOC: CARD 11:44
PROVIDERS: ATTEND Nurse Practitioner Family
DX: R05.9 Cough, unspecified (principal); R07.9 Chest pain, unspecified
CPT/HCPCS: 36415; 71046; 80053; 82550; 84484; 85027; 93005

== ENCOUNTER → 2021-09-12 | Outpatient (CLI) | payer MEDICARE ==
--- NOTE | 2021-09-12 17:47 | Diagnostic Imaging Report ---
Indication: Back pain. Time of Exam: 3:39 PM There is slight left convexity lumbar scoliotic curvature. There is normal lordotic curvature. Vertebral body heights are well-maintained. No acute compression fracture seen. There is generalized degenerative disc disease with variable disc space narrowing and marginal spurring, greatest L4-L5 and L5-S1 levels. There is also vacuum disc phenomenon at these levels. Impression: Lumbar spondylosis and scoliosis. No acute bony abnormality is detected. Dictated by: Dictated on workstation # [id number]
--- NOTE | 2021-09-12 17:48 | Diagnostic Imaging Report ---
Indication: Pain. Time of Exam: 3:40 PM Multiple views of the sacroiliac joints were obtained. No ankylosis, sclerosis or osseous erosive changes are identified. Impression: No acute abnormality is identified. Dictated by: Dictated on workstation # [id number]
== END ==
LOC: RAD 15:16
PROVIDERS: ATTEND Nurse Practitioner Family
DX: M47.816 Spondylosis without myelopathy or radiculopathy, lumbar region (principal); M41.86 Other forms of scoliosis, lumbar region; M53.3 Sacrococcygeal disorders, not elsewhere classified
CPT/HCPCS: 72100; 72202

== ENCOUNTER → 2021-09-16 | Outpatient (CLI) | payer MEDICARE ==
--- NOTE | 2021-09-16 09:10 | Diagnostic Imaging Report ---
PROCEDURE: MRI lumbar spine. TECHNIQUE: Multiplanar, multisequence MRI of the lumbar spine was performed without contrast. INDICATION: No known injury. Low back pain for last month. EXAMINATION: Lumbar spine MRI without contrast 09/16/2021. FINDINGS: There is normal height and alignment of the vertebral bodies. No fractures or subluxations appreciated. Tip of the conus unremarkable in appearance and location. L1-L2: There is bilateral facet hypertrophy. No central stenosis. There is mild bilateral neural foraminal narrowing. L2-L3: There is disc desiccation with bilateral facet hypertrophy. No central stenosis is seen. There is moderate bilateral neural foraminal stenosis. L3-L4: There is disc desiccation with a broad-based bulging disc. There is mild facet hypertrophy with no central stenosis. There is a severe right and moderate left neural foraminal narrowing. L4-L5: There is intervertebral space narrowing, disc desiccation with minimal broad-based bulging disc material. There is bilateral facet with ligamentum flavum hypertrophy. No central stenosis. There is moderate to severe bilateral neural foraminal narrowing. L5-S1: There is disc desiccation with a broad-based bulging disc. There is bilateral facet and ligamentum flavum hypertrophy with no significant central narrowing. There is severe left and moderate right neural foraminal stenosis. Visualized intra-abdominal structures demonstrate cystic lesions in the kidneys poorly characterized. There are likely bilateral extrarenal pelves. IMPRESSION: 1. Multilevel degenerative findings as noted above. Dictated by: Dictated on workstation # [id number]
== END ==
LOC: RAD 07:45
PROVIDERS: ATTEND Nurse Practitioner Family
DX: M47.817 Spondylosis without myelopathy or radiculopathy, lumbosacral region (principal); M48.061 Spinal stenosis, lumbar region without neurogenic claudication; M51.27 Other intervertebral disc displacement, lumbosacral region; Q61.02 Congenital multiple renal cysts; M46.1 Sacroiliitis, not elsewhere classified
CPT/HCPCS: 72148

== ENCOUNTER 2022-04-13 05:31 | Outpatient (CLI) | payer MEDICARE ==
[~2022-04-13] VITALS: Ht 170.2 cm; Wt 75.5 kg
[~2022-04-13 05:31] MED LIST changes: +CLOP-31 PO; -CLOP75TA69 PO
[2022-04-13] MEDS ORDERED: MULT-1136 PO (14:17)
[2022-04-13] MEDS ORDERED: SILD20TA14 PO (14:17)
[2022-04-13] MEDS ORDERED: ASPI-999 PO (14:17)
[2022-04-13] MEDS ORDERED: GLUC100016 PO (14:17)
== END 2022-04-13 14:35 | disposition home or self-care (01) ==
LOC: PREOP 05:31
PROVIDERS: ATTEND Surgery
DX: Z01.818 Encounter for other preprocedural examination (principal)

== ENCOUNTER 2022-04-19 07:07 | Day surgery (SDC) | payer MEDICARE ==
[~2022-04-19] VITALS: Ht 170.2 cm; Wt 75.5 kg
[2022-04-19] VITALS (13 sets, daily range): BP systolic 116–130; BP diastolic 67–83
[~2022-04-19 07:07] MED LIST changes: +GLUC100016 PO; +MULT-1136 PO; +SILD20TA14 PO
[2022-04-19] MEDS ORDERED: ceFAZolin INJECTION 2,000 MG in NS (IVPB) 50 ML IV ONE (07:15)
[2022-04-19] MEDS ORDERED: BUP/EPI 0.5% 1:200,000 (SENSORCAINE) 30 ML VIAL ONE (07:29)
[2022-04-19] MEDS ORDERED: proPOfol 200 MG/20 ML (DIPRIVAN) VIAL IV ONE (07:32)
[2022-04-19] MEDS ORDERED: MIDAZOLAM 2 MG/2 ML (VERSED) VIAL ONE (07:32)
[2022-04-19] MEDS ORDERED: ONDANSETRON 4 MG/2 ML (SDV) Z0FRAN ONE (07:32)
[2022-04-19] MEDS ORDERED: fentaNYL INJ 100 MCG/2 ML AMP ONE (07:32)
[2022-04-19] MEDS ORDERED: LIDOCAINE PF 2% 5 ML (XYLOCAINE) VIAL ONE (07:32)
[2022-04-19] MEDS ORDERED: ROCURONIUM 50 MG/5 ML (ZEMURON) VIAL IV ONE (07:32)
[2022-04-19] MEDS: LACTATED RINGERS 1,000 ML IV PRN ×2 (07:45→09:32)
[2022-04-19] MEDS ORDERED: GLYCOPYRROLATE 0.2 MG/ML (ROBINUL) 2 ML VIAL ONE (10:27)
[2022-04-19] MEDS ORDERED: NEOSTIGMINE (BLOXIVERZ ) 1 MG/1ML 10 ML VIAL ONE (10:27)
[2022-04-19] MEDS ORDERED: SEVOFLURANE (ULTANE) 15 ML INHAL SOLN ONE (10:36)
[2022-04-19] MEDS ORDERED: TRM50T PO (10:42)
[2022-04-19] MEDS ORDERED: DOCU-143 PO (10:42)
--- NOTE | 2022-04-19 10:43 | Discharge Inst-Simple/Standard ---
Discharge Inst-Standard Discharge Medications New, Converted or Re-Newed RX: Transmitted to Pharmacy Patient Instructions/Follow Up Plan of Care/Instructions/FU: 2-3 weeks [place] Activity as Tolerated: No Discharge Diet: Regular Diet Other Inst to Patient Follow up Appt: Make appointment for 2-3 week. Instructions: No lifting greater than 10 pounds. No strenuous activity. May shower in 24 hours, no tub bath or soaking. Use incentive spirometer at home as directed. No Smoking Skin/Wound Care: You have special glue over your incision that will fall off on it's own. Symptoms to Report: Appetite Changes, Extremity Discoloration, Numbness/Tingling, Swelling Increas ed, Bleeding Excessive, Eyesight Changes, Pain Increased, Urine Color Change, Constipation(Persistent), Fever over 101 degree F, Pain/Pressure in chest, Urinating Difficulty, Cough Up/Vomit Blood, Heart Beat Irreg/Pounding, Pain/Pressure in jaw, Vaginal Bleeding Increase, Cramps in feet or legs, Lightheadedness, Pain/Pressure in shoulder, Diarrhea(Persistent), Memory Changes Suddenly, Questions/Concerns, Weight gain consecutive days, Dizziness/Fainting, Nausea/Vomiting, Shortness of Breath, Weight gain over 2 pounds If questions or concerns contact your physician Or seek help at emergency department. HERBIE MUSE DO Apr 19, 2022 10:43
--- NOTE | 2022-04-19 10:44 | Progress Note-Post Operative ---
Post-Operative Progess Note Surgeon (s)/Assorter Laundry (s) Surgeon HERBIE MUSE DO Assorter Laundry: Dr. Viera Pre-Operative Diagnosis RIGHT INGUINAL HERNIA UMBILICAL HERNIA Post-Operative Diagnosis same Procedure & Operative Findings Date of Procedure 04/19/22 Procedure Performed/Findings robotic/laparoscopic right inguinal hernia and primary umbilical hernia repair. Anesthesia Type general Estimated Blood Loss Estimated blood loss (mL): minimal Specimens/Packing Specimens Removed na HERBIE MUSE DO Apr 19, 2022 10:44
[2022-04-19] MEDS ORDERED: PROMETHAZINE INJ 25 MG/ML (PHENERGAN) AMP IVP ONE (10:45)
[2022-04-19] MEDS ORDERED: HYDROmorphone 2 MG/ML VIAL (DILAUDID) IV ONE (10:45)
[2022-04-19] MEDS ORDERED: morphine INJ 10 MG/ML 1ML (SYR OR VIAL) IVP ONE (10:45)
[2022-04-19] MEDS ORDERED: ONDANSETRON 4 MG/2 ML (SDV) Z0FRAN IVP PRN (10:45)
--- NOTE | 2022-04-19 12:28 | Anesthesia-General Post-Op ---
General Patient Condition Mental Status/LOC: Same as Preop Cardiovascular: Satisfactory Nausea/Vomiting: Absent Respiratory: Satisfactory Pain: Controlled Complications: Absent Post Op Complications Complications None Follow Up Care/Instructions Patient Instructions None needed. Anesthesia/Patient Condition Patient Condition Patient is doing well, no complaints, stable vital signs, no apparent adverse anesthesia problems. No complications reported per nursing. ROSALIO MARTIN CRNA Apr 19, 2022 12:28
--- NOTE | 2022-04-20 09:37 | OPERATIVE REPORT ---
DATE OF SERVICE: 04/19/2022 PREOPERATIVE DIAGNOSES: Umbilical and right inguinal hernia. POSTOPERATIVE DIAGNOSES: Umbilical and right inguinal hernia. PROCEDURES: Robotic right inguinal hernia repair and primary umbilical hernia repair. SURGEON: Herbie Arteaga DO. MAT PACKER: Dr. Viera, who assisted in retraction, dissection, and closure. ANESTHESIA: General. ESTIMATED BLOOD LOSS: Minimal. COMPLICATIONS: None. INDICATIONS: The patient is a 76-year-old male with a right inguinal hernia and umbilical hernia. He understands the risks and benefits of the procedure and wishes to proceed. Consent was signed in chart. DESCRIPTION OF PROCEDURE: The patient was taken to the operating suite, prepped and draped in sterile fashion. Timeout was performed. Local anesthetic was infiltrated above the umbilical hernia. An 11 blade scalpel was used to make skin incision. Cautery was used to dissect down to the hernia defect. The fascia was then grasped, elevated and the hernia contents were reduced and the abdomen was then entered. An 0 Vicryl was placed for closure of the hernia defect at the end of the case. A 12 mm talley trocar was inserted and pneumoperitoneum was achieved under direct visualization. An 8 mm trocar was placed on the right and left side lateral to the umbilicus. Multiple adhesions from previous appendectomy and also noting a right indirect inguinal hernia. The robot was then docked. The adhesions were then started to taken down. There were some adhesions still down in the right gutter, but we went to the peritoneum, started taking the peritoneum down, down all the way to Chet's ligament medially and laterally forming a pocket. There was no direct defect, the indirect sac was then continued to be dissected out and the cord was taken off of it. Reducing all the contents. A large Bard 3DMax mesh was then inserted into the pocket and secured to Chet's ligament with a 3-0 Vicryl and then also on the lateral superior aspect of the mesh to the abdominal wall. The peritoneum was then closed with decreased pressure with 3-0 V-Loc suture. Part of the omentum from the adhesions that were taken down were then used to attach to the peritoneum that had a small hole in it. The abdomen was then desufflated. The trocars were removed after the robot was then docked. The 0 Vicryl at the beginning of the case was closed, the hernia defect was then tied. The skin incisions were then closed using 4-0 Monocryl in subcuticular fashion and Skin Affix was placed over the incisions. The patient tolerated the procedure well without complications, taken to recovery room in stable condition. Job ID: [id number] DocumentID: [id number] Dictated Date: 04/20/2022 07:50:56 Shipping Order Clerk Date: 04/20/2022 09:34:00 Dictated By: HERBIE ARTEAGA DO
== END 2022-04-19 12:50 ==
LOC: SDC 07:07
PROVIDERS: ATTEND Surgery
DX: K40.90 Unilateral inguinal hernia, without obstruction or gangrene, not specified as recurrent (principal); K42.9 Umbilical hernia without obstruction or gangrene; Z86.16 Personal history of COVID-19; Z79.02 Long term (current) use of antithrombotics/antiplatelets
CPT/HCPCS: 49591; 49650; 87081; C1781